=== PATIENT | male | born 1955 | race Caucasian/White ===

== ENCOUNTER → 2016-08-01 | Outpatient (REF) ==
[2016-08-01 07:05] LABS: HEMATOCRIT 37.7 % (42.0-52.0)
[2016-08-01 07:20] LABS: HEMOGLOBIN 11.9 g/dl (13.5-18.0)
== END ==
LOC: ZMSC 07:01
PROVIDERS: Orthopaedic Surgery
DX: Z01.89 Encounter for other specified special examinations (principal)

== ENCOUNTER → 2017-01-15 | Outpatient (CLI) | payer BC, MEDICARE | LOC: COL.LAB 12:53 | DX: Z01.812 Encounter for preprocedural laboratory examination (principal) ==